=== PATIENT | female | born 1975 | race Caucasian/White ===

== ENCOUNTER 2019-04-05 12:24 | Emergency (ER) | payer MEDICAID ==
[2019-04-05] MEDS ORDERED: Ketorolac 30 MG/ML SDV IVPUSH ONE (12:43)
[2019-04-05] MEDS ORDERED: Ketorolac 60 MG/2 ML SDV IM ONE (12:47)
--- NOTE | 2019-04-05 13:03 | EDM.PDOC ---
ED HPI GENERAL MEDICAL PROBLEM - General Chief Complaint: Flank Pain Stated Complaint: back pain that goes into right side Time Seen by Provider: 04/05/19 12:35 Source of Information: Reports: Patient History Limitations: Reports: No Limitations - History of Present Illness INITIAL COMMENTS - FREE TEXT/NARRATIVE: 44-year-old female with slowly worsening right flank and right lower back pain for the past 4 days. It has become fairly significant, sharp, painful with movement so she came in to have it checked. She thought she was constipated so took MiraLAX, that has not helped. She has not had this pain in the past. She has no urologic symptoms or fever. Denies shortness of breath or nausea or vomiting. No trauma. Onset: Gradual Duration: Day(s): (4 days) Location: Reports: Back (Right flank and right lower back) Severity: Severe Worsens with: Reports: Movement Associated Symptoms: Reports: No Other Symptoms - Related Data Allergies Allergy/AdvReac Type Severity Reaction Status Date / Time codeine Allergy Itching Verified 04/05/19 12:32 hydrocodone Allergy Nausea and Verified 04/05/19 12:32 Vomiting oxycodone Allergy Airway Verified 04/05/19 12:32 Tightness Home Meds: Home Meds NK [No Known Home Meds] 04/05/19 [History] Past Medical History - Past Surgical History Cardiovascular Surgical History: Reports: Varicose Social & Family History - Tobacco Use Smoking Status *Q: Never Smoker ED ROS GENERAL - Review of Systems Review Of Systems: See Below Constitutional: Denies: Fever, Chills HEENT: Reports: No Symptoms Respiratory: Denies: Shortness of Breath, Pleuritic Chest Pain GI/Abdominal: Denies: Abdominal Pain, Nausea, Vomiting : Reports: Flank Pain. Denies: Frequency, Urgency Musculoskeletal: Reports: Back Pain (Right lower thoracic and right paralumbar areas) Skin: Reports: No Symptoms Neurological: Reports: No Symptoms. Denies: Paresthesia Psychiatric: Reports: Anxiety ED EXAM, GENERAL - Physical Exam Exam: See Below Exam Limited By: No Limitations General Appearance: Alert, Moderate Distress (Very anxious about having an IV or using needles) Head: Atraumatic Respiratory/Chest: No Respiratory Distress Cardiovascular: Regular Rate, Rhythm Back Exam: Other (Intense pain with palpation of the para thoracic and paralumbar muscles on the right side, no bruising or rash over the painful area objectively) Neurological: Alert, Oriented Psychiatric: Anxious Course - Vital Signs Last Recorded V/S: Last Vital Signs Temp 95.8 F 04/05/19 12:38 Pulse 90 04/05/19 12:38 Resp 16 04/05/19 12:38 BP 150/94 H 04/05/19 12:38 Pulse Ox 99 04/05/19 12:38 - Orders/Labs/Meds Labs: Laboratory Tests 04/05/19 04/05/19 Range/Units 12:47 12:52 Urine Color Yellow (YELLOW) Urine Appearance Cloudy A (CLEAR) Urine pH 6.0 (5.0-8.0) Ur Specific [place] 1.025 (1.008-1.030) Urine Protein Negative (NEGATIVE) mg/dL Urine Glucose (UA) Negative (NEGATIVE) mg/dL Urine Ketones Negative (NEGATIVE) mg/dL Urine Occult Blood Trace-intact H (NEGATIVE) Urine Nitrite Negative (NEGATIVE) Urine Bilirubin Negative (NEGATIVE) Urine Urobilinogen 0.2 (0.2-1.0) EU/dL Ur Leukocyte Esterase Negative (NEGATIVE) Urine RBC 0-5 (0-5) Urine WBC 5-10 H (0-5) Ur Epithelial Cells Few Amorphous Sediment Not seen Urine Bacteria Few Urine Mucus Moderate Urine HCG, Qual Negative Meds: Medications Discontinued Medications Generic Name Dose Route Start Last Admin Trade Name Walt PRN Reason Stop Dose Admin Ketorolac Tromethamine 30 mg 04/05/19 12:43 Toradol IVPUSH 04/05/19 12:44 ONETIME ONE Ketorolac Tromethamine 60 mg 04/05/19 12:47 04/05/19 12:53 Toradol IM 04/05/19 12:48 60 mg ONETIME ONE Administration - Re-Assessments/Exams Free Text/Narrative Re-Assessment/Exam: 04/05/19 13:02 A UA was obtained. Urine and urinalysis will be checked, followed by CT of the abdomen pelvis without contrast if not . She was given 60 mg of IM Toradol. 04/05/19 13:14 UA shows a few white blood cells but no other abnormality. Patient will be sent for CT of the abdomen and pelvis without contrast to evaluate right flank pain. Urine is negative. 04/05/19 14:28 Patient appeared to have fairly significant pain relief from the IM Toradol. The CT scan was negative. She will be discharged with 3 more days of oral Toradol, along with Flexeril and should recheck in 3 to 4 days if not improving satisfactorily for a physical therapy consultation. Departure - Departure Time of Disposition: 14:41 Disposition: Home, Self-Care 01 Clinical Impression: Low back strain Qualifiers: Encounter type: initial encounter Qualified Code(s): S39.012A - Strain of muscle, fascia and tendon of lower back, initial encounter - Discharge Information Instructions: Mid-Back Strain Referrals: PCP,None [Primary Care Provider] - Forms: ED Department Discharge Care Plan Goals: Take ketorolac 3 times a day as prescribed along with Flexeril up to 3 times daily. Increase activity as tolerated and consider rechecking in 3 to 4 days if not improving satisfactorily, you may need a physical therapy consultation. Return sooner if worsening such as fever, nausea or vomiting or persistent difficulty breathing. Sepsis Event Note - Evaluation Sepsis Screening Result: No Definite Risk - Focused Exam Vital Signs: Vital Signs Temp Pulse Resp BP Pulse Ox 04/05/19 12:38 95.8 F 90 16 150/94 H 99 Date Exam was Performed: 04/05/19 Time Exam was Performed: 15:08
--- NOTE | 2019-04-05 14:12 | CRLCT ---
INDICATION: Right flank pain. TECHNIQUE: CT abdomen pelvis performed without oral or IV contrast. FINDINGS: Mild linear atelectasis or scarring in the lung bases. Small bone islands in the pelvic bones and femurs. Trace amount of pericardial fluid. Gallbladder not well distended. No renal or ureteral stones. Both kidneys are lobulated with some cortical thinning and scarring in both kidneys. Air and soft tissue density/stranding in the right buttock consistent with a very recent subcutaneous injection. Scattered small lymph nodes in the abdomen and pelvis. Large mass or group of masses in the uterus with contain numerous calcifications and measure at least 7-8 cm. Findings likely related to uterine fibroids. Followup pelvic ultrasound could confirm this suspicion and exclude other masses. Remainder negative. IMPRESSION: 1. No acute disease in abdomen or pelvis. No renal or ureteral calculi. 2. Enlarged lobulated uterus containing a large lobulated solid partially calcified mass or group of masses likely related uterine fibroid/fibroids. Pelvic ultrasound could confirm this. 3. Other nonacute findings as above. Please note that all CT scans at this facility use dose modulation, iterative reconstruction, and/or weight-based dosing when appropriate to reduce radiation dose to as low as reasonably achievable. Dictated by Bill Mcintosh MD @ Apr 05 2019 2:08PM Signed by Dr. Bill Mcintosh @ Apr 05 2019 2:11PM
== END 2019-04-05 14:41 | disposition home or self-care (01) ==
LOC: JP.ED 12:24
DX: S39.012A Strain of muscle, fascia and tendon of lower back, initial encounter (principal); Z88.5 Allergy status to narcotic agent; X58.XXXA Exposure to other specified factors, initial encounter
CPT/HCPCS: 74176; 81001; 81025; 96372; 99284; J1885; 99282